=== PATIENT | female | born 1990 | race Two or more races ===

== ENCOUNTER 2024-11-25 11:17 | Inpatient (IN) | payer OTHER ==
[~2024-11-25] VITALS: Ht 160 cm; Wt 93.4 kg
[2024-11-25 13:41] LABS: Urine Protein, UAD Negative (Negative)
[2024-11-25 13:50] LABS: Fern Testing Negative
--- NOTE | 2024-11-25 14:00 | DVH ---
CLINICAL HISTORY: Possible spontaneous rupture of membranes. COMPARISON: None TECHNIQUE: biophysical profile was performed. Transabdominal sonographic images of the fetus we re obtained. FINDINGS: The fetus is in cephalic position. heart rate measures 157 BPM. Amniotic fluid index measures 12.8 cm. The placenta is anterior in position without visualized evidence of previa or abrup tion. BPP profile is an overall score of 8/8, with 2/2 points for breathing, with at least one episode of breathing over a 30 second duration during a 30 minute observation, 2/2 points for m ovements, with 3 or more discrete body or limb movements, 2/2 points for tone, with one or more episodes of extremity extension with return to flexion, or opening and closing of hand, and 2/ 2 points for amniotic fluid, with at least 1 pocket of amniotic fluid that measures 2 cm in 2 perpend icular planes. IMPRESSION: BPP score of 8/8.
[2024-11-25] MEDS ORDERED: PREN-96 PO (15:02)
[2024-11-25] MEDS ORDERED: LIDOCAINE 2%HCL (LOCAL ANESTH.) INJ 20ML MDV IJ PRN (15:15)
[2024-11-25 15:48] LABS: Hematocrit 41.5 % (36.0-46.0); Hemoglobin 14.1 g/dL (12.2-16.2); Mean Corpuscular Hemoglobin 30.5 pg (28.0-32.0); Mean Corpuscular Volume 89.5 fL (80.0-100.0); Nucleated Red Blood Cells % 0.0 %
[2024-11-25 15:59] LABS: Amphetamine Screen, Urine Neg (NEGATIVE); Barbiturate Scree,Urine Neg (NEGATIVE); Benzodiazephine Screen, Urine Neg (NEGATIVE); Cocaine Screen, Urine Neg (NEGATIVE)
[2024-11-25 16:02] LABS: Cannabinoid Screen, Urine Neg (NEGATIVE); Opiate Scree,Urine Neg (NEGATIVE); Phencyclidine Screen, Urine Neg (NEGATIVE)
[2024-11-25 16:02] LABS: Alanine Aminotransferase 12 U/L (7-40); Albumin 3.8 g/dL (3.2-4.8); Anion Gap 12 (5-15); BUN/Creatinine Ratio 11.1 (10.0-20.0); Calcium 8.7 mg/dL (8.7-10.4); Carbon Dioxide 21 mmol/L (20-31); Glucose 82 mg/dL (74-106); Potassium 3.7 mmol/L (3.5-5.1); Sodium 141 mmol/L (136-145); Total Protein 6.5 g/dL (5.7-8.2)
[2024-11-25 16:03] LABS: Alkaline Phosphatase 179 U/L (46-116); Bilirubin, Total 0.3 mg/dL (0.2-1.0); Blood Urea Nitrogen 6 mg/dL (9-23); Chloride 108 mmol/L (98-107)
[2024-11-25 16:06] LABS: INR 0.9 (0.9-1.15); Partial Thromboplastin Time 26.2 SEC (24.5-34.5); Prothrombin Time 9.6 sec (9.3-11.8)
--- NOTE | 2024-11-25 16:11 | DVHHP2 ---
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, had an episiotomy with delivery, pap smear was 5 yrs ago Past Medical History Cardiac: No pertinent Hx Pulmonary: No pertinent Hx Central Nervous System: No pertinent Hx GI: No pertinent Hx Hemotology/Oncology: No pertinent Hx Hepatobiliary: No pertinent Hx Psychiatric: No pertinent Hx Musculoskeletal: No pertinent Hx Rheumotologic: No pertinent Hx Infectious Disease: No peritnent Hx ENT: No pertinent Hx Renal/: No pertinent Hx Endocrine: No pertinent Hx Dermatology: No pertinent Hx Past Surgical History: No pertinent Hx OB History OB History Care: Limited Care Ultrasounds: Normal mid trimester US Medical Complications: None Allergies: Coded Allergies: NO KNOWN ALLERGIES (Unverified , 11/25/24) Home Meds Reported Medications Vit W/ Ferrous Fumara ( One Daily) Daily Tab, 1 TAB PO DAILY, #90 TAB 3 Refills 11/25/24 Current Medications Current Medications Medications (Trade) Dose Ordered Sig/Melissa Route PRN Reason Start Time Stop Time Status Last Admin Lactated Ringer's 1,000 ml @ 125 mls/hr Q8H IV 11/25/24 15:15 Witch Lexy (Tucks) 1 pad PRN PRN TOP PERINEAL AREA DISCOMFORT 11/25/24 15:15 Sodium Lauryl Sulfate (Phisoderm) 240 ml PRN PRN TOP PERINEAL AREA DISCOMFORT 11/25/24 15:15 Benzocaine (Dermoplast) 1 applic PRN PRN TOP PERINEAL AREA DISCOMFORT 11/25/24 15:15 Lidocaine HCl (Xylocaine) 20 ml ONCE PRN IJ PERINEAL AREA DISCOMFORT 11/25/24 15:15 Misoprostol (Cytotec) 50 mcg Q4HPRN PRN PO CERVICAL RIPENING 11/25/24 16:00 Family & Social History Family/Social History Past Family/Social History: denies Blood Type: B+ Rubella: immune RPR/VDRL: Negative GBS Status: Negative HBsAG: Negative Review of Systems Constitutional: No symptom reported Ears, Nose, & Throat: No symptom reported Eyes: No symptom reported Pulmonary/Respiratory: No symptom reported Cardiovascular: No symptom reported Gastrointestinal: No symptom reported Genitourinary: No symptom reported Musculoskeletal: No symptom reported Skin: No symptom reported Psychiatric: No symptom reported Endocrine: No symptom reported Hemotologic/Lymphatic: No symptom reported OB Admission Exam Physical Exam HEENT: TMs Normal, Fontanelles Normal, Nasal Mucosa Normal, Eyes non-injected, Oropharynx Normal, PERRLA, Moist Membranes, EOMI Heart: Rhythm Normal Lungs: Clear Abdomen: Gravid Extremities: Normal Reflexes: Normal Cervical Dilatation: 1cm Effacement: 0% Station: -3 Membranes: Ruptured (@ 0900 today) Amniotic Fluid: Clear Heart Rate: 140's Accelerations: Accelerations Present Decelerations: Variable Decelerations Fdc Variability: Average (6-25) Contractions on Admission: 6-10 Minutes Apart Date/Time Contractions Began: 11/25/24 @ 1200 Frequency of Contractions: 1-2/10 Duration: 80 Intensity: Mild OB Plan Plan Admitting Diagnosis: 34 yo @ IUP @ 37.5 wk IOL for SROM GBS negative Srom, clear fluid Cat 2 strip Plan: Induction Induction Methd: Misoprostol protocol (PO) Other Plan: P: Admit to L&D Informed consent obtained Discussed risks, benefits of IOL with pt. pt agrees Discussed potential of starting PO Cytotec after strip becomes Cat l for 30 min. Pt agrees with POC Routine labs ordered pain management PRN Frequent position changes in and out of bed encouraged monitoring per order Limit SVE unless necessary Intrauterine resuscitation PRN Anticipate CNM will consult with Dr Pham PRN Visit Coding OBGYN Date of Service: Nov 25, 2024 Billing Provider: MINI BLOCK CNM VICE PRESIDENT OF NURSING Common Visit Codes: [id number] INP/OBS CARE (MOD) VICE PRESIDENT OF NURSING Procedure Codes: 02272-37- NON-STRESS TEST ROBIN MENDOZA Nov 25, 2024 16:11
[2024-11-25] MEDS: DERMOPLAST 60ML BOTTLE TOP PRN (19:12)
[2024-11-25] MEDS: WITCH HAZEL-GLYCERIN PAD TOP PRN (19:12)
[2024-11-25] MEDS: LACTATED RINGER'S 1,000 ML IV SCH (19:13)
--- NOTE | 2024-11-25 20:55 | DVHPN2 ---
OB Labor Progress Note Date and Time Seen Date Seen: Nov 25, 2024 Time Seen: 20:25 Subjective Patient reports: No new complaints Objective Vital Signs VSS see CPN Monitoring Method Monitoring Method: External Heart Rate Heart Rate Baseline: 140 Heart Rate Variability: Moderate Presence of FHR Accelerations: Yes Presence of FHR Decelerations: No Are all 5 Components of the FH: No Contractions Contractions Frequency: Occasional (4-6/10) Duration of Contraction: 70 Contractions Intensity: Mild Contractions Resting Tone: Relaxed Membranes Membranes: Ruptured Amniotic Fluid Color: Clear Vaginal Exam Vag Exam Deferred: No Vaginal Exam Dilation: 1 Vaginal Exam Effacement: 30 Vaginal Exam Station: -3 Vaginal Exam Presentation: VTX Vaginal Exam Show: Small Medications Medications - Pitocin: No Medication - Epidural: No Medication - Other s/p Po cytotec x 1 Lab Results Lab Results Current Medications Medications (Trade) Dose Ordered Sig/Melissa Start Time Stop Time Status Last Admin Dose Admin Lactated Ringer's 1,000 ml @ 125 mls/hr Q8H 11/25/24 15:15 11/25/24 19:13 125 MLS/HR Witch Lexy (Tucks) 1 pad PRN PRN 11/25/24 15:15 11/25/24 19:12 1 PAD Sodium Lauryl Sulfate (Phisoderm) 240 ml PRN PRN 11/25/24 15:15 Benzocaine (Dermoplast) 1 applic PRN PRN 11/25/24 15:15 11/25/24 19:12 1 APPLIC Lidocaine HCl (Xylocaine) 20 ml ONCE PRN 11/25/24 15:15 Misoprostol (Cytotec) 50 mcg Q4HPRN PRN 11/25/24 16:00 11/25/24 16:31 50 MCG Laboratory Tests Test 11/25/24 15:30 11/25/24 12:45 Range/Units White Blood Count 10.2 4.4-10.8 10^3/uL Red Blood Count 4.63 4.0-5.20 10^6/uL Hemoglobin 14.1 12.2-16.2 g/dL Hematocrit 41.5 36.0-46.0 % Mean Corpuscular Volume 89.5 80.0-100.0 fL Mean Corpuscular Hemoglobin 30.5 28.0-32.0 pg Mean Corpuscular Hemoglobin Concent 34.1 32.0-36.0 g/dL Red Cell Distribution Width 14.4 H 11.8-14.3 % Platelet Count 276 140-450 10^3/uL Mean Platelet Volume 8.5 6.9-10.8 fL Neutrophils (%) (Auto) 74.0 37.0-80.0 % Lymphocytes (%) (Auto) 20.0 10.0-50.0 % Monocytes (%) (Auto) 5.0 0.0-12.0 % Eosinophils (%) (Auto) 0.3 0.0-7.0 % Basophils (%) (Auto) 0.7 0.0-2.0 % Neutrophils # (Auto) 7.6 1.6-8.6 10 ^3/uL Lymphocytes # (Auto) 2.0 0.4-5.4 10 ^3/uL Monocytes # (Auto) 0.5 0-1.3 10 ^3/uL Eosinophils # (Auto) 0 0-0.8 10 ^3/uL Basophils # (Auto) 0.1 0-0.2 10 ^3/uL Nucleated Red Blood Cells 0.0 % Prothrombin Time 9.6 9.3-11.8 sec Prothrombin Time INR 0.90 0.9-1.15 Activated Partial Thromboplast Time 26.2 24.5-34.5 SEC Sodium Level 141 136-145 mmol/L Potassium Level 3.7 3.5-5.1 mmol/L Chloride Level 108 H 98-107 mmol/L Carbon Dioxide Level 21 20-31 mmol/L Anion Gap 12 5-15 Blood Urea Nitrogen 6 L 9-23 mg/dL Creatinine 0.54 L 0.550-1.02 mg/dL Glomerular Filtration Rate Calc 124 >90 mL/min BUN/Creatinine Ratio 11.1 10.0-20.0 Serum Glucose 82 74-106 mg/dL Calcium Level 8.7 8.7-10.4 mg/dL Total Bilirubin 0.3 0.2-1.0 mg/dL Aspartate Amino Transferase (AST) 21 13-40 U/L Alanine Aminotransferase (ALT) 12 7-40 U/L Alkaline Phosphatase 179 H 46-116 U/L Total Protein 6.5 5.7-8.2 g/dL Albumin 3.8 3.2-4.8 g/dL Treponema pallidum Antibody Non-reactive Negative Urine Color Light-yellow Yellow Urine Clarity Clear Clear Urine pH 6.5 5.0-9.0 Urine Specific [place] 1.017 1.001-1.035 Urine Protein Negative Negative Urine Ketones Negative Negative Urine Blood Negative Negative /uL Urine Nitrite Negative Negative Urine Bilirubin Negative Negative Urine Urobilinogen Normal Negative mg/dL Urine Leukocyte Esterase Negative Negative /uL Urine RBC <1 0 - 4 /hpf Urine Microscopic WBC 1 0-5 /HPF Urine Squamous Epithelial Cells Few <5 /hpf Urine Bacteria None seen None Seen /hpf Urine Mucus Few None Seen Urine Glucose Normal Normal mg/dL Amniotic Fluid Ferning Test Negative Placental Clvkh-3-Fgkgxxvobvfge Positive Urine Opiates Screen Neg NEGATIVE Urine Fentanyl Screen Neg NEGATIVE Urine Barbiturates Screen Neg NEGATIVE Urine Phencyclidine Screen Neg NEGATIVE Urine Amphetamines Screen Neg NEGATIVE Urine Benzodiazepines Screen Neg NEGATIVE Urine Cocaine Screen Neg NEGATIVE Urine Cannabinoids Screen Neg NEGATIVE Assessment Assessment A: 34yo IUP @ 37.5wk IOL for SROM SROM- clear fluid GBS negative Plan Plan P: monitoring per order Limit SVE unless necessary IUPC in place Another dose of PO cytotec if Cat 1 EFM for 30 mins Intrauterine resuscitation PRN Frequent position changes in and out of bed encouraged Plan discussed with: Patient, Spouse Visit Coding OBGYN Date of Service: Nov 25, 2024 Billing Provider: MINI BLOCK CNM SENIOR ANALYTICAL CHEMIST Common Visit Codes: [id number] INP/OBS CARE(MOD) ROBIN MENDOZA Nov 25, 2024 20:55
[2024-11-26] MEDS: PHISODERM TOP SOLN 240ML BTL TOP PRN (00:19)
[2024-11-26] MEDS: ceFAZolin 2 GM/D5W50ml 50 ML IV ONE (01:00)
[2024-11-26] MEDS: NALOXONE HCL 0.4 MG/ML VIAL IV ONE (01:30)
--- NOTE | 2024-11-26 02:22 | DVHPN2 ---
OB Labor Progress Note Date and Time Seen Date Seen: Nov 26, 2024 Time Seen: 02:00 Subjective Patient reports: Feels worse (pain 7/10, wants epidural) Objective Vital Signs VSS see CPN Monitoring Method Monitoring Method: External Heart Rate Heart Rate Baseline: 145 Heart Rate Variability: Moderate Presence of FHR Accelerations: Yes Presence of FHR Decelerations: Yes Heart Rate Type of Decel: Variable Decelerations Changes in Trends of Patterns: No Are all 5 Components of the FH: No Contractions Contractions Frequency: Occasional (1-4/10) Duration of Contraction: 80 Contractions Intensity: Moderate Contractions Resting Tone: Relaxed Membranes Membranes: Ruptured Amniotic Fluid Color: Clear Vaginal Exam Vag Exam Deferred: No (NEY) Vaginal Exam Presentation: VTX Vaginal Exam Show: Small Medications Medications - Pitocin: No Medication - Epidural: No Medication - Other s/p PO cytotec x 2 Lab Results Lab Results Current Medications Medications (Trade) Dose Ordered Sig/Melissa Start Time Stop Time Status Last Admin Dose Admin Lactated Ringer's 1,000 ml @ 125 mls/hr Q8H 11/25/24 15:15 11/25/24 20:57 125 MLS/HR Kimberlee Kirbyel (Tucks) 1 pad PRN PRN 11/25/24 15:15 11/25/24 19:12 1 PAD Sodium Lauryl Sulfate (Phisoderm) 240 ml PRN PRN 11/25/24 15:15 11/26/24 00:19 240 ML Benzocaine (Dermoplast) 1 applic PRN PRN 11/25/24 15:15 11/25/24 19:12 1 APPLIC Lidocaine HCl (Xylocaine) 20 ml ONCE PRN 11/25/24 15:15 Misoprostol (Cytotec) 50 mcg Q4HPRN PRN 11/25/24 16:00 11/25/24 21:47 50 MCG Cefazolin Sodium 50 ml @ 100 mls/hr ONCE ONCE 11/26/24 11:00 11/26/24 11:29 Cefazolin Sodium/ Dextrose 50 ml @ 50 mls/hr ONCE ONCE 11/26/24 03:00 11/26/24 03:59 11/26/24 01:00 50 MLS/HR Naloxone HCl (Narcan) 0.2 mg PRN ONCE 11/26/24 01:30 11/26/24 01:43 DC Ephedrine Sulfate (ePHEDrine SULFATE) 50 mg PRN ONCE 11/26/24 01:30 11/26/24 01:43 DC Lactated Ringer's 500 ml @ 500 mls/hr Q1H ONCE 11/26/24 01:30 11/26/24 02:29 Laboratory Tests Test 11/25/24 15:30 11/25/24 12:45 Range/Units White Blood Count 10.2 4.4-10.8 10^3/uL Red Blood Count 4.63 4.0-5.20 10^6/uL Hemoglobin 14.1 12.2-16.2 g/dL Hematocrit 41.5 36.0-46.0 % Mean Corpuscular Volume 89.5 80.0-100.0 fL Mean Corpuscular Hemoglobin 30.5 28.0-32.0 pg Mean Corpuscular Hemoglobin Concent 34.1 32.0-36.0 g/dL Red Cell Distribution Width 14.4 H 11.8-14.3 % Platelet Count 276 140-450 10^3/uL Mean Platelet Volume 8.5 6.9-10.8 fL Neutrophils (%) (Auto) 74.0 37.0-80.0 % Lymphocytes (%) (Auto) 20.0 10.0-50.0 % Monocytes (%) (Auto) 5.0 0.0-12.0 % Eosinophils (%) (Auto) 0.3 0.0-7.0 % Basophils (%) (Auto) 0.7 0.0-2.0 % Neutrophils # (Auto) 7.6 1.6-8.6 10 ^3/uL Lymphocytes # (Auto) 2.0 0.4-5.4 10 ^3/uL Monocytes # (Auto) 0.5 0-1.3 10 ^3/uL Eosinophils # (Auto) 0 0-0.8 10 ^3/uL Basophils # (Auto) 0.1 0-0.2 10 ^3/uL Nucleated Red Blood Cells 0.0 % Prothrombin Time 9.6 9.3-11.8 sec Prothrombin Time INR 0.90 0.9-1.15 Activated Partial Thromboplast Time 26.2 24.5-34.5 SEC Sodium Level 141 136-145 mmol/L Potassium Level 3.7 3.5-5.1 mmol/L Chloride Level 108 H 98-107 mmol/L Carbon Dioxide Level 21 20-31 mmol/L Anion Gap 12 5-15 Blood Urea Nitrogen 6 L 9-23 mg/dL Creatinine 0.54 L 0.550-1.02 mg/dL Glomerular Filtration Rate Calc 124 >90 mL/min BUN/Creatinine Ratio 11.1 10.0-20.0 Serum Glucose 82 74-106 mg/dL Calcium Level 8.7 8.7-10.4 mg/dL Total Bilirubin 0.3 0.2-1.0 mg/dL Aspartate Amino Transferase (AST) 21 13-40 U/L Alanine Aminotransferase (ALT) 12 7-40 U/L Alkaline Phosphatase 179 H 46-116 U/L Total Protein 6.5 5.7-8.2 g/dL Albumin 3.8 3.2-4.8 g/dL Treponema pallidum Antibody Non-reactive Negative Urine Color Light-yellow Yellow Urine Clarity Clear Clear Urine pH 6.5 5.0-9.0 Urine Specific [place] 1.017 1.001-1.035 Urine Protein Negative Negative Urine Ketones Negative Negative Urine Blood Negative Negative /uL Urine Nitrite Negative Negative Urine Bilirubin Negative Negative Urine Urobilinogen Normal Negative mg/dL Urine Leukocyte Esterase Negative Negative /uL Urine RBC <1 0 - 4 /hpf Urine Microscopic WBC 1 0-5 /HPF Urine Squamous Epithelial Cells Few <5 /hpf Urine Bacteria None seen None Seen /hpf Urine Mucus Few None Seen Urine Glucose Normal Normal mg/dL Amniotic Fluid Ferning Test Negative Placental Lsrva-3-Edrxaievjlunl Positive Urine Opiates Screen Neg NEGATIVE Urine Fentanyl Screen Neg NEGATIVE Urine Barbiturates Screen Neg NEGATIVE Urine Phencyclidine Screen Neg NEGATIVE Urine Amphetamines Screen Neg NEGATIVE Urine Benzodiazepines Screen Neg NEGATIVE Urine Cocaine Screen Neg NEGATIVE Urine Cannabinoids Screen Neg NEGATIVE Assessment Assessment A: 34yo IUP@37.6wks Induction of Labor Category II EFM SROM IUPC in place GBS negative Plan Plan P: monitoring per order Next PO cytotec dose after 30 min Cat I EFM Pain mgmt PRN Frequent position changes in and out of bed encouraged Limit SVE unless necessary Intrauterine resuscitation PRN Anticipate CNM will consult with Dr. Pham PRN Plan discussed with: Patient Visit Coding OBGYN Date of Service: Nov 26, 2024 Billing Provider: MINI BLOCK CNM DECORATING INSTRUCTOR Common Visit Codes: [id number] INP/OBS CARE(MOD) ROBIN MENDOZA Nov 26, 2024 02:22
[2024-11-26] MEDS: ROPIVACAINE HCL 100 ML ONE (02:52)
[2024-11-26] MEDS: LACTATED RINGER'S 500 ML IV ONE (02:53)
--- NOTE | 2024-11-26 04:33 | DVHPN2 ---
OB Labor Progress Note Date and Time Seen Date Seen: Nov 26, 2024 Time Seen: 03:40 Subjective Patient reports: Feels better (epidural working) Objective Vital Signs VSS see CPN Monitoring Method Monitoring Method: Internal (IUPC), External Heart Rate Heart Rate Baseline: 145 Heart Rate Variability: Moderate Presence of FHR Accelerations: Yes Presence of FHR Decelerations: Yes Heart Rate Type of Decel: Variable Decelerations Changes in Trends of Patterns: Yes Are all 5 Components of the FH: Yes Contractions Contractions Frequency: Occasional (2-3/10) Duration of Contraction: 80 Contractions Intensity: Moderate Contractions Resting Tone: Relaxed, MVU Membranes Membranes: Ruptured Amniotic Fluid Color: Clear Vaginal Exam Vag Exam Deferred: No (2.5/60/-3) Vaginal Exam Show: Small Medications Medications - Pitocin: No Medication - Epidural: Yes Medication - Other s/p PO cytotec x 2 Lab Results Lab Results Current Medications Medications (Trade) Dose Ordered Sig/Melissa Start Time Stop Time Status Last Admin Dose Admin Lactated Ringer's 1,000 ml @ 125 mls/hr Q8H 11/25/24 15:15 11/25/24 20:57 125 MLS/HR Witlatrice Lexy (Tucks) 1 pad PRN PRN 11/25/24 15:15 11/25/24 19:12 1 PAD Sodium Lauryl Sulfate (Phisoderm) 240 ml PRN PRN 11/25/24 15:15 11/26/24 00:19 240 ML Benzocaine (Dermoplast) 1 applic PRN PRN 11/25/24 15:15 11/25/24 19:12 1 APPLIC Lidocaine HCl (Xylocaine) 20 ml ONCE PRN 11/25/24 15:15 Misoprostol (Cytotec) 50 mcg Q4HPRN PRN 11/25/24 16:00 11/25/24 21:47 50 MCG Cefazolin Sodium 50 ml @ 100 mls/hr ONCE ONCE 11/26/24 11:00 11/26/24 11:29 Cefazolin Sodium/ Dextrose 50 ml @ 50 mls/hr ONCE ONCE 11/26/24 03:00 11/26/24 03:59 DC 11/26/24 01:00 50 MLS/HR Naloxone HCl (Narcan) 0.2 mg PRN ONCE 11/26/24 01:30 10/2/25 01:43 DC Ephedrine Sulfate (ePHEDrine SULFATE) 50 mg PRN ONCE 11/26/24 01:30 11/26/24 01:43 DC 11/26/24 02:49 50 MG Lactated Ringer's 500 ml @ 500 mls/hr Q1H ONCE 11/26/24 01:30 11/26/24 02:29 DC 11/26/24 02:53 500 MLS/HR Laboratory Tests Test 11/25/24 15:30 11/25/24 12:45 Range/Units White Blood Count 10.2 4.4-10.8 10^3/uL Red Blood Count 4.63 4.0-5.20 10^6/uL Hemoglobin 14.1 12.2-16.2 g/dL Hematocrit 41.5 36.0-46.0 % Mean Corpuscular Volume 89.5 80.0-100.0 fL Mean Corpuscular Hemoglobin 30.5 28.0-32.0 pg Mean Corpuscular Hemoglobin Concent 34.1 32.0-36.0 g/dL Red Cell Distribution Width 14.4 H 11.8-14.3 % Platelet Count 276 140-450 10^3/uL Mean Platelet Volume 8.5 6.9-10.8 fL Neutrophils (%) (Auto) 74.0 37.0-80.0 % Lymphocytes (%) (Auto) 20.0 10.0-50.0 % Monocytes (%) (Auto) 5.0 0.0-12.0 % Eosinophils (%) (Auto) 0.3 0.0-7.0 % Basophils (%) (Auto) 0.7 0.0-2.0 % Neutrophils # (Auto) 7.6 1.6-8.6 10 ^3/uL Lymphocytes # (Auto) 2.0 0.4-5.4 10 ^3/uL Monocytes # (Auto) 0.5 0-1.3 10 ^3/uL Eosinophils # (Auto) 0 0-0.8 10 ^3/uL Basophils # (Auto) 0.1 0-0.2 10 ^3/uL Nucleated Red Blood Cells 0.0 % Prothrombin Time 9.6 9.3-11.8 sec Prothrombin Time INR 0.90 0.9-1.15 Activated Partial Thromboplast Time 26.2 24.5-34.5 SEC Sodium Level 141 136-145 mmol/L Potassium Level 3.7 3.5-5.1 mmol/L Chloride Level 108 H 98-107 mmol/L Carbon Dioxide Level 21 20-31 mmol/L Anion Gap 12 5-15 Blood Urea Nitrogen 6 L 9-23 mg/dL Creatinine 0.54 L 0.550-1.02 mg/dL Glomerular Filtration Rate Calc 124 >90 mL/min BUN/Creatinine Ratio 11.1 10.0-20.0 Serum Glucose 82 74-106 mg/dL Calcium Level 8.7 8.7-10.4 mg/dL Total Bilirubin 0.3 0.2-1.0 mg/dL Aspartate Amino Transferase (AST) 21 13-40 U/L Alanine Aminotransferase (ALT) 12 7-40 U/L Alkaline Phosphatase 179 H 46-116 U/L Total Protein 6.5 5.7-8.2 g/dL Albumin 3.8 3.2-4.8 g/dL Treponema pallidum Antibody Non-reactive Negative Urine Color Light-yellow Yellow Urine Clarity Clear Clear Urine pH 6.5 5.0-9.0 Urine Specific [place] 1.017 1.001-1.035 Urine Protein Negative Negative Urine Ketones Negative Negative Urine Blood Negative Negative /uL Urine Nitrite Negative Negative Urine Bilirubin Negative Negative Urine Urobilinogen Normal Negative mg/dL Urine Leukocyte Esterase Negative Negative /uL Urine RBC <1 0 - 4 /hpf Urine Microscopic WBC 1 0-5 /HPF Urine Squamous Epithelial Cells Few <5 /hpf Urine Bacteria None seen None Seen /hpf Urine Mucus Few None Seen Urine Glucose Normal Normal mg/dL Amniotic Fluid Ferning Test Negative Placental Blrod-3-Xejyxshjmfllg Positive Urine Opiates Screen Neg NEGATIVE Urine Fentanyl Screen Neg NEGATIVE Urine Barbiturates Screen Neg NEGATIVE Urine Phencyclidine Screen Neg NEGATIVE Urine Amphetamines Screen Neg NEGATIVE Urine Benzodiazepines Screen Neg NEGATIVE Urine Cocaine Screen Neg NEGATIVE Urine Cannabinoids Screen Neg NEGATIVE Assessment Assessment A: 34yo IUP @ 37.6 wk IOL for SROM Cat 2 EFM SROM- clear GBS negative Plan Plan P: monitoring per order Limit SVE unless necessary IUPC replaced for accurate reading Start IV pitocn per order if Cat 1 EFM for 30 mins Intrauterine resuscitation PRN Frequent position changes in bed encouraged Plan discussed with: Patient Visit Coding OBGYN Date of Service: Nov 26, 2024 Billing Provider: MINI BLOCK CNM CLINICAL OFFICE TECHNICIAN Common Visit Codes: [id number] INP/OBS CARE(MOD) ROBIN MENDOZA Nov 26, 2024 04:33
[2024-11-26] MEDS ORDERED: TERBUTALINE SULFATE 1 MG/ML 1ML VIAL SC PRN (05:30)
--- NOTE | 2024-11-26 06:49 | DVHPN2 ---
Chief Complaints Patient reports: No new complaints, Feels better (epidural working) Nursing reports: No new complaints Objective Medications Current Medications Medications (Trade) Dose Ordered Sig/Melissa Route PRN Reason Start Time Stop Time Status Last Admin Benzocaine (Dermoplast) 1 applic PRN PRN TOP PERINEAL AREA DISCOMFORT 11/25/24 15:15 11/25/24 19:12 Lactated Ringer's 1,000 ml @ 125 mls/hr Q8H IV 11/25/24 15:15 11/25/24 20:57 Lidocaine HCl (Xylocaine) 20 ml ONCE PRN IJ PERINEAL AREA DISCOMFORT 11/25/24 15:15 Misoprostol (Cytotec) 50 mcg Q4HPRN PRN PO CERVICAL RIPENING 11/25/24 16:00 11/25/24 21:47 Oxytocin 1,000 ml @ 6 ml/hr Q24H IV 11/26/24 05:30 Sodium Lauryl Sulfate (Phisoderm) 240 ml PRN PRN TOP PERINEAL AREA DISCOMFORT 11/25/24 15:15 11/26/24 00:19 Terbutaline Sulfate (Brethine Inj) 0.25 mg ONCE PRN SC Uterine tachysystole 11/26/24 05:30 Witch Lexy (Tucks) 1 pad PRN PRN TOP PERINEAL AREA DISCOMFORT 11/25/24 15:15 11/25/24 19:12 Others ve-5-6/70/-2 Studies Laboratory Tests 11/25/24 15:30 Test 11/25/24 15:30 Range/Units Serum Glucose 82 74-106 mg/dL Ass/Plan Assessment labor Plan cont with amnio start pitocin Visit Coding OBGYN Date of Service: Nov 26, 2024 Billing Provider: RALF BUSH DO SUPPLY CHAIN PROJECT MANAGER Common Visit Codes: [id number] INP/OBS CARE (HIGH) SUPPLY CHAIN PROJECT MANAGER Procedure Codes: 53862-40- NON-STRESS TEST RALF BUSH DO Nov 26, 2024 06:49
[2024-11-26] MEDS: ceFAZolin 1GM/50ML 50 ML IV ONE (08:45)
[2024-11-26] MEDS: LACT. RINGERS/OXYTOCIN 20UNITS 1,000 ML IV SCH (09:28)
[2024-11-26] MEDS: CARBOPROST TROMETHAMINE 250 MCG/1ML VIAL IM ONE (10:22)
[2024-11-26] MEDS: METHYLERGONOVINE MALEATE 0.2 MG/ML AMP IM ONE (10:30)
[2024-11-26] MEDS ORDERED: ONDANSETRON ODT 4 MG TAB PO PRN (11:00)
--- NOTE | 2024-11-26 11:46 | LDN2 ---
Labor and Delivery Note Date 11/26/24 Age 34 2 Para 2 EGA 37wks Diagnosis srom,morbid obesity,nuchal cord Vaginal Delivery: VTX Vacuum Assisted: No Placenta: Spontaneous Sex: Male Apgars 8-9 Nuchal Cord Transected: Yes Amniotic Fluid: Clear Anesthesia epoidural Episiotomy: No Extension: Yes (2nd deg perineal lac) Repaired with 2-0 chromic EBL 300ml Labs Blood Bank 11/25/24 15:30: Blood Type B POSITIVE Complications none Conditions stable Comments/Significant Med Adolfo no cxal lac,cord ph done Visit Coding OBGYN Date of Service: Nov 26, 2024 Billing Provider: RALF BUSH DO HOUSEKEEPING COORDINATOR Common Visit Codes: [id number] OBS CARE (HIGH) HOUSEKEEPING COORDINATOR Procedure Codes: [id number] DELIVERY ONLY RALF BUSH DO Nov 26, 2024 11:46
[2024-11-26] MEDS ORDERED: TRANEXAMIC ACID 1,000 mg/10ml INJ VIAL IV ONE (12:09)
[2024-11-26 15:00] VITALS: BP 112/49; PULSE 100; RESP 20; TEMP 98.7; O2SAT 97
[2024-11-26] MEDS: IBUPROFEN 600 MG TAB PO PRN (16:43)
[2024-11-26] MEDS: LACT. RINGERS/OXYTOCIN 20UNITS 500 ML IV ONE ×2 (17:39→17:41)
[2024-11-26] MEDS: ACETAMINOPHEN 325 MG TAB PO PRN (18:44)
[2024-11-26 18:47] VITALS: BP 111/66; PULSE 91; RESP 18; TEMP 98.6; O2SAT 96
[2024-11-26] MEDS: DOCUSATE SOD 100 MG CAP PO SCH (22:30)
[2024-11-26 22:57] VITALS: BP 115/71; PULSE 96; RESP 18; TEMP 98.5; O2SAT 96
--- NOTE | 2024-11-27 00:25 | DVHPN2 ---
Progress Note Date Seen: Nov 27, 2024 Subjective Mariana is resting R lateral and feeling good overall. Hoping to get some rest tonight and improve . SUBJECTIVE -Lochia minimal -Tolerating regular diet well. -Pain relieved with oral medication PRN. Feels more soreness in her stitches than in her abdomen with cramping -Ambulating and voiding well w/o feeling lightheaded or dizzy. -Passing flatus but no BM yet -Breast feeding. -Unsure if she wants to discharge today. Depends how goes vital signs Vital Sign Date Time Temp Pulse Resp B/P (MAP) Pulse Ox O2 Delivery O2 Flow Rate FiO2 11/26/24 22:57 98.5 96 18 115/71 (86) 96 98.5 11/26/24 19:30 Room Air Total Intake and Output 11/26/24 11/26/24 11/27/24 15:00 23:00 07:00 Output Total 800 ml 600 ml Balance -800 ml -600 ml medications Current Medications Medications Dose Ordered Sig/Melissa Route Start Time Stop Time Status Last Admin Dose Admin Lactated Ringer's 1,000 ml @ 125 mls/hr Q8H IV 11/25/24 15:15 11/25/24 20:57 125 MLS/HR Witch Marcos 1 pad PRN PRN TOP 11/25/24 15:15 11/25/24 19:12 1 PAD Sodium Lauryl Sulfate 240 ml PRN PRN TOP 11/25/24 15:15 11/26/24 00:19 240 ML Benzocaine 1 applic PRN PRN TOP 11/25/24 15:15 11/25/24 19:12 1 APPLIC Lidocaine HCl 20 ml ONCE PRN IJ 11/25/24 15:15 Misoprostol 50 mcg Q4HPRN PRN PO 11/25/24 16:00 11/25/24 21:47 50 MCG Oxytocin 1,000 ml @ 6 ml/hr Q24H IV 11/26/24 05:30 11/26/24 09:28 3 ML/HR Terbutaline Sulfate 0.25 mg ONCE PRN SC 11/26/24 05:30 Ibuprofen 600 mg Q6HP PRN PO 11/26/24 11:00 11/26/24 22:31 600 MG Acetaminophen 650 mg Q4HP PRN PO 11/26/24 11:00 11/26/24 18:44 650 MG Ondansetron HCl 4 mg Q4HPRN PRN PO 11/26/24 11:00 Docusate Sodium 200 mg HS PO 11/26/24 22:00 11/26/24 22:30 200 MG laboratory and microbiology Laboratory Tests 11/25/24 15:30 Test 11/25/24 15:30 Range/Units Serum Glucose 82 74-106 mg/dL Objective OBJECTIVE -A&O x4. No apparent distress. Affect appropriate -Afebrile, VSS -Chest: heart and lung sounds normal. -Breasts: Nipples intact w/o cracks or soreness -Abdomen: normal BS, soft, non-tender, no rebound or guarding, fundus firm @ U- 1, lochia minimal -Perineum: no edema, or erythema, Incision site with sutures intact, edges in good approximation. -Extremities: no edema or tenderness Problems(with codes): (1) Normal spontaneous vaginal delivery Assessment/Plan ASSESSMENT -34 yo now ppd #1 s/p doing well. -Blood Type: B+ -Breast feeding -Rubella Immune PLAN -Continue pain management with oral medications as previously ordered -Increase fluid intake and fiber in diet to promote regular bowel movements, Laxative PRN. Discussed taking colace around the clock for 2-3 weeks to prevent constipation and wire weaver helper healing in perineum. Encouraged patient to use witch marcos and dermoplast to alleviate soreness and sit in positions that lessen pelvic pressure -Encouraged patient to continue taking vitamin and iron -Educated patient on self care and warning signs of PPH, PPD, and pre-eclampsia. Answered all pt questions and concerns -Continue routine care. Will check in with patient in 6-7 hours to assess readiness for discharge Plan discussed with: Patient, Spouse Visit Coding OBGYN Date of Service: Nov 27, 2024 Billing Provider: SANDRITA MINA CNM AGATE SETTER Common Visit Codes: [id number] INP/OBS CARE(MOD) SANDRITA MINA CNM Nov 27, 2024 00:25
[2024-11-27] MEDS ORDERED: IBU600T PO (00:26)
[2024-11-27] MEDS ORDERED: DOCU-94 PO (00:26)
[2024-11-27 07:00] VITALS: BP 102/63; PULSE 88; RESP 20; TEMP 97.4; O2SAT 98
[2024-11-27 11:00] VITALS: BP 101/54; PULSE 80; RESP 20; TEMP 97.4; O2SAT 98
--- NOTE | 2024-11-27 14:14 | DVHPN2 ---
Chief Complaints Patient reports: No new complaints, Feels better (epidural working) Nursing reports: No new complaints Objective Vitals Vital Signs Date Time Temp Pulse Resp B/P (MAP) Pulse Ox O2 Delivery O2 Flow Rate FiO2 11/27/24 11:00 97.4 80 20 101/54 (70) 98 97.4 11/27/24 07:00 Room Air 0.0 Medications Current Medications Medications (Trade) Dose Ordered Sig/Melissa Route PRN Reason Start Time Stop Time Status Last Admin Docusate Sodium (Colace Capsule) 200 mg HS PO 11/26/24 22:00 11/26/24 22:30 Lungs: Normal Cardiovascular: Normal Abdominal: Soft Extremities: Normal Studies Laboratory Tests 11/25/24 15:30 Test 11/25/24 15:30 Range/Units Serum Glucose 82 74-106 mg/dL Ass/Plan Assessment s/p Plan dc home fu in 2wks Visit Coding OBGYN Date of Service: Nov 27, 2024 Billing Provider: RALF BUSH DO [employer]BER [employer] MANAGER Common Visit Codes: 74326-[id number] OBS CARE (HIGH), 74755-ZDV/OBS DISCH DAY >30MIN [employer]BER [employer] MA[employer]GER Procedure Codes: 30464-CHT DELIVERY ONLY RALF BUSH DO Nov 27, 2024 14:14
--- NOTE | 2024-11-27 14:16 | DVHDS2 ---
Obstetrics Discharge Summary Obstetrics Discharge Summary Date of Admission: Nov 25, 2024 Date of Discharge: Nov 27, 2024 Reason For Admission: PROM Procedures: NST Intrapartum Procedures: Spontaneous vaginal deliv Procedures: None Operative Complicat: Laceration (Perineal) Discharge Diagnosis: Term -Delivered Discharge Information: Activity (Other), Diet (Routine), Medications (None), Instructions (Routine), Discharge to (Home), Accompanied by, Discarge date (11-27) Visit Coding OBGYN Date of Service: Nov 27, 2024 Billing Provider: RALF BUSH DO AIRLINE STEWARDESS Common Visit Codes: 51676-[id number] OBS CARE (HIGH), 26722-ZEZ/OBS DISCH DAY >30MIN AIRLINE STEWARDESS Procedure Codes: 56339-NQT DELIVERY ONLY RALF BUSH DO Nov 27, 2024 14:16
== END 2024-11-27 18:00 | disposition home or self-care (01) | DRG 807 ==
LOC: LDRP 11:17 → UNDOADMOB 11:17 → LDRP 13:13 → OBSVTOIN 14:00 → INTOOBSV 14:00 → OBSVTOIN 15:00 → LDRP 15:00
PROVIDERS: ADMIT Obstetrics & Gynecology; ATTEND Obstetrics & Gynecology
PROC: 3E0DXGC Introduction of Other Therapeutic Substance into Mouth and Pharynx, External Approach (ICD-10-PCS; 2024-11-25)
PROC: 10E0XZZ Delivery of Products of Conception, External Approach (ICD-10-PCS; principal; 2024-11-26)
PROC: 0KQM0ZZ Repair Perineum Muscle, Open Approach (ICD-10-PCS; 2024-11-26)
PROC: 10H07YZ Insertion of Other Device into Products of Conception, Via Natural or Artificial Opening (ICD-10-PCS; 2024-11-26)
PROC: 00HU33Z Insertion of Infusion Device into Spinal Canal, Percutaneous Approach (ICD-10-PCS; 2024-11-26)
PROC: 3E0R3BZ Introduction of Anesthetic Agent into Spinal Canal, Percutaneous Approach (ICD-10-PCS; 2024-11-26)
DX: O42.02 Full-term premature rupture of membranes, onset of labor within 24 hours of rupture (principal); Z37.0 Single live birth; Z3A.37 37 weeks gestation of pregnancy; E66.01 Morbid (severe) obesity due to excess calories; O99.214 Obesity complicating childbirth; O70.1 Second degree perineal laceration during delivery; O76 Abnormality in fetal heart rate and rhythm complicating labor and delivery; O69.81X0 Labor and delivery complicated by cord around neck, without compression, not applicable or unspecified
CPT/HCPCS: 36415; 59409; 62282; 76819; 80053; 80307; 81001; 84112; 84436; 84443; 84481; 85025; 85610; 85730; 86780; 86803; 86850; 86900; 86901; 94760; 94762; 96360; 96361; 96365; 96366; 96372; 96374; 96375; G0378; J2590